=== PATIENT | male | born 1975 | race Caucasian/White ===

== ENCOUNTER 2019-09-24 08:18 | Emergency (ER) | payer SELFPAY ==
[~2019-09-24] VITALS: Ht 177.8 cm; Wt 61.2 kg
[2019-09-24 08:26] VITALS: BP 142/86
[2019-09-24] MEDS: TETRACAINE 0.5% OPHTH SOLUTION 4ML BOTTLE. OS ONE (08:34)
[2019-09-24] MEDS: FLUORESCEIN OPHTH TEST STRIP. OS ONE (08:34)
[2019-09-24] MEDS ORDERED: OFLO5DRO RIGHTEYE (08:50)
--- NOTE | 2019-09-24 08:50 | PHYS DOC ---
Past Medical History Past Medical History: No Pertinent History Past Surgical History: No Surgical History Alcohol Use: Occasionally Drug Use: None Adult General Chief Complaint Chief Complaint: EYE PROBLEMS HPI HPI Patient is a 44 year old male without history of medical problem who presents with eye pain and redness. Patient states he is more contact lenses yesterday after a while nausea and vomiting, headache. That he didn't wear lenses and since last night has left eye redness and foreign body sensation and blurred vision. Patient denies fever and chills nausea and vomiting, headache. Review of Systems Review of Systems Constitutional: Denies fever or chills [] Eyes: Denies change in visual acuity, redness, or eye pain [] HENT: Denies nasal congestion or sore throat [] Respiratory: Denies cough or shortness of breath [] Cardiovascular: No additional information not addressed in HPI [] GI: Denies abdominal pain, nausea, vomiting, bloody stools or diarrhea [] : Denies dysuria or hematuria [] Musculoskeletal: Denies back pain or joint pain [] Integument: Denies rash or skin lesions [] Neurologic: Denies headache, focal weakness or sensory changes [] Endocrine: Denies polyuria or polydipsia [] All other systems were reviewed and found to be within normal limits, except as documented in this note. Current Medications Current Medications Current Medications Medications (Trade) Dose Ordered Sig/Ivan Start Time Stop Time Status Last Admin Dose Admin Fluorescein Sodium (Ful-Samantha) 1 strip 1X ONCE 09/24/19 08:30 09/24/19 08:35 DC 09/24/19 08:34 1 STRIP Tetracaine HCl (Tetracaine) 1 drop 1X ONCE 09/24/19 08:30 09/24/19 08:35 DC 09/24/19 08:34 1 DROP Allergies Allergies Allergies Coded Allergies Type Severity Reaction Last Updated Verified No Known Drug Allergies 09/24/19 No Physical Exam Physical Exam Constitutional: Well developed, well nourished, no acute distress, non-toxic appearance. [] HENT: Normocephalic, atraumatic, bilateral external ears normal, oropharynx moist, no oral exudates, nose normal. [] Eyes: PERRLA, EOMI, conjunctiva normal, no discharge. [] Neck: Normal range of motion, no tenderness, supple, no stridor. [] Cardiovascular:Heart rate regular rhythm, no murmur [] Lungs & Thorax: Bilateral breath sounds clear to auscultation [] Abdomen: Bowel sounds normal, soft, no tenderness, no masses, no pulsatile masses. [] Skin: Warm, dry, no erythema, no rash. [] Back: No tenderness, no CVA tenderness. [] Extremities: No tenderness, no cyanosis, no clubbing, ROM intact, no edema. [] Neurologic: Alert and oriented X 3, normal motor function, normal sensory function, no focal deficits noted. [] Psychologic: Affect normal, judgement normal, mood normal. [] Current Patient Data Vital Signs Vital Signs Date Time Temp Pulse Resp B/P (MAP) Pulse Ox O2 Delivery O2 Flow Rate FiO2 09/24/19 08:26 98.3 74 16 142/86 (104) 100 Room Air 98.3 EKG EKG [] Radiology/Procedures Radiology/Procedures [] Course & Med Decision Making Course & Med Decision Making Pertinent Labs and Imaging studies reviewed. (See chart for details) [] Dragon Disclaimer Dragon Disclaimer This electronic medical record was generated, in whole or in part, using a voice recognition dictation system. Departure Departure Impression: Primary Impression: Left corneal abrasion Disposition: HOME, SELF-CARE (at 0 [phone]) Condition: IMPROVED Patient Instructions: Eye - Corneal Abrasion Additional Instructions: Do not wear contact lens Follow-up with ophthalmology physician in 2-3 days Return to ER if not getting better Thank you for visiting [facility]. We appreciate you trusting us with your care. If any additional problems come up don't hesitate to return to visit us. Please follow up with your primary care provider so they can plan additional care if needed and know about the problem that you had. If symptoms worsen come back to the Emergency Department. Any concerning symptoms that start such as chest pain, shortness of air, weakness or numbness on one side of the body, running high fevers or any other concerning symptoms return to the ER. Scripts Ofloxacin (OCUFLOX) 5 Ml Drops 2 DROP RIGHTEYE Q6HRS for 7 Days, #1 BOTTLE Prov: TARIQ HERNANDEZ MD 09/24/19 Problem Qualifiers Primary Impression: Left corneal abrasion Encounter type: initial encounter Qualified Codes: S05.02XA - Injury of conjunctiva and corneal abrasion without foreign body, left eye, initial encounter TARIQ HERNANDEZ MD Sep 24, 2019 08:50
== END 2019-09-24 09:12 | disposition home or self-care (01) ==
LOC: ER 08:18
DX: S05.02XA Injury of conjunctiva and corneal abrasion without foreign body, left eye, initial encounter (principal); R11.2 Nausea with vomiting, unspecified; H53.8 Other visual disturbances; Y29.XXXA Contact with blunt object, undetermined intent, initial encounter; Y93.89 Activity, other specified; Y92.89 Other specified places as the place of occurrence of the external cause; Y99.8 Other external cause status
CPT/HCPCS: 99283

== ENCOUNTER 2020-09-24 00:13 | Emergency (ER) | payer SELFPAY ==
[~2020-09-24] VITALS: Ht 177.8 cm; Wt 70.9 kg
[~2020-09-24 00:13] MED LIST: OFLO5DRO RIGHTEYE
[2020-09-24 00:25] VITALS: BP 128/85
--- NOTE | 2020-09-24 01:14 | ED.ADGEN ---
Past Medical History Past Medical History: No Pertinent History Past Surgical History: Other Additional Past Surgical Histo: hemorrhoid repair Smoking Status: Current Every Day Smoker Additional Information: 1 PPD Alcohol Use: Occasionally Drug Use: None General Adult EDM: Chief Complaint: LACERATION/AVULSION HPI: HPI: Patient is a 45 year old male presenting with bleeding from a wound on his penis. Patient states that he dropped a tool when he was working on his house and had a laceration on the ventral shaft of his penis. Says it was bleeding heavily and he used superglue to stop the bleeding. Patient states that earlier some of the glue peeled off and started bleeding again. Bleeding controlled prior to ED arrival. No other complaints, tetanus up-to-date. Says he otherwise has been well and denies any history of sleep disorders Review of Systems: Review of Systems: All other systems within normal limits except for as noted in the HPI Allergies: Allergies: Allergies Coded Allergies Type Severity Reaction Last Updated Verified No Known Drug Allergies 09/24/19 No Physical Exam: PE: Constitutional: Well developed, well nourished, no acute distress, non-toxic appearance. [] HENT: Normocephalic, atraumatic, bilateral external ears normal, nose normal. [] Eyes: PERRLA, conjunctiva normal, no discharge. [] Neck: No rigidity, supple, no stridor. [] Cardiovascular: Regular rate and rhythm, brisk cap refill [] Lungs & Thorax: Non labored symmetric respirations, no tachypnea or respiratory distress [] Abdomen: Soft, nondistended. Skin: Warm, dry, no erythema, no rash. Dried glue to the shaft of penis, no active bleeding. Wound edges not well approximated [] Back: No tenderness, no CVA tenderness. [] Extremities: No deformities, range of motion grossly intact, no lower extremity edema [] Neurologic: Alert and oriented X 3, no focal deficits noted. [] Psychologic: Affect normal, judgement normal, mood normal. [] Current Patient Data: Vital Signs: Vital Signs Date Time Temp Pulse Resp B/P (MAP) Pulse Ox O2 Delivery O2 Flow Rate FiO2 09/24/20 00:25 98.6 107 18 128/85 (99) 99 Room Air 98.6 EKG: EKG: [] Heart Score: Risk Factors: Risk Factors: DM, Current or recent (<one month) smoker, HTN, HLP, family history of CAD, obesity. Risk Scores: Score 0 - 3: 2.5% MACE over next 6 weeks - Discharge Home Score 4 - 6: 20.3% MACE over next 6 weeks - Admit for Clinical Observation Score 7 - 10: 72.7% MACE over next 6 weeks - Early Invasive Strategies Radiology/Procedures: Radiology/Procedures: [] Course & Med Decision Making: Course & Med Decision Making Discussed with patient that wound is outside timeframe for suture repair. Discussed that he will likely need urology follow-up for scar revision. Discussed wound care and return precautions Dragon Disclaimer: Dragon Disclaimer: This electronic medical record was generated, in whole or in part, using a voice recognition dictation system. Departure Departure Impression: Primary Impression: Laceration Disposition: 09 ADMITTED INPT THIS HOSP Condition: STABLE Referrals: KARENA CLOUD (PCP) Patient Instructions: Tissue Adhesive Wound Care Additional Instructions: Follow-up with [place] [facility] care, call for appointment at nearest location or any other urologist of your choosing AMY CORNEJO MD Sep 24, 2020 01:14
== END 2020-09-24 01:18 | disposition admitted as inpatient to this hospital (09) ==
LOC: ER 00:13
DX: S31.21XA Laceration without foreign body of penis, initial encounter (principal); F17.200 Nicotine dependence, unspecified, uncomplicated; Z98.890 Other specified postprocedural states; W20.8XXA Other cause of strike by thrown, projected or falling object, initial encounter; Y93.89 Activity, other specified; Y92.89 Other specified places as the place of occurrence of the external cause; Y99.8 Other external cause status
CPT/HCPCS: 99283

== ENCOUNTER 2021-10-17 17:41 | Emergency (ER) | payer SELFPAY ==
[~2021-10-17] VITALS: Ht 177.8 cm; Wt 72.4 kg
[2021-10-17 18:36] VITALS: BP 120/89
--- NOTE | 2021-10-17 18:41 | PHYS DOC ---
Past Medical History Past Medical History: No Pertinent History Past Surgical History: Other Additional Past Surgical Histo: hemorrhoid repair Smoking Status: Current Every Day Smoker Alcohol Use: Occasionally Drug Use: None General Adult EDM: Chief Complaint: LACERATION/AVULSION HPI: HPI: Patient is a 46 year old male without pertinent past medical history who presents with a laceration to his left thumb. Was working with a grinding wheel when it skipped on him and cut the back of his left thumb. States that is approximately an inch or slightly less. Bleeding stopped quickly. His friend helped him put butterfly bandage over the top of it and wrap it before coming to the emergency department. States that he still has full sensation and movement of his thumb. He is concerned that he originally saw his bone. Tetanus last updated approximately 4 years ago. Denies other injuries. Review of Systems: Review of Systems: Constitutional: Denies fever or chills. [] HENT: Denies nasal congestion or sore throat. [] Respiratory: Denies cough or shortness of breath. [] Musculoskeletal: Denies back pain or joint pain. [] Integument: Reports left thumb laceration Neurologic: Denies thumb weakness or sensory changes. [] Heart Score: C/O Chest Pain: No Allergies: Allergies: Allergies Coded Allergies Type Severity Reaction Last Updated Verified No Known Drug Allergies 10/17/21 No Physical Exam: PE: Constitutional: Well developed, well nourished, no acute distress, non-toxic appearance. [] HENT: Normocephalic, atraumatic Cardiovascular: Regular rate Lungs & Thorax: Normal work of breathing Skin: See laceration as described below Extremities: Dorsum of left thumb with a 1.5 cm laceration transversely oriented between the DIP and the PIP. Bleeding is hemostatic. Patient is able to fully flex the thumb, and can extend through the PIP, but cannot extend his DIP joint. Brisk cap refill. Sensation intact distally. No clear evidence of bony injury. There is a complete extensor tendon laceration evident on wound exploration. Neurologic: Alert and oriented X 3, normal motor function, normal sensory function, no focal deficits noted. [] Psychologic: Affect normal, judgement normal, mood normal. [] Current Patient Data: Vital Signs: Vital Signs Date Time Temp Pulse Resp B/P (MAP) Pulse Ox O2 Delivery O2 Flow Rate FiO2 10/17/21 18:08 97.2 81 10 126/89 (101) 98 Room Air 97.2 EKG: EKG: [] Radiology/Procedures: Radiology/Procedures: Indication: Left thumb laceration Procedure: The patient was placed in the appropriate position and anesthesia was injected locally with 1% lidocaine. The area was then copiously pressure irrigated with saline. The wound was explored and showed a complete extensor tendon injury. The laceration was closed with three 4-0 silk sutures in a simple interrupted fashion. Total repaired wound length: 1.5 cm. Other Items: None The patient tolerated the procedure well. Complications: None.[] Course & Med Decision Making: Course & Med Decision Making Pertinent Labs and Imaging studies reviewed. (See chart for details) Patient 46-year-old male without pertinent past medical history presents with a laceration to the posterior of his left thumb. There is a complete extensor tendon injury visualized on inspection and the p atient has an inability to extend his DIP. X-ray negative. Repaired as above. Called [facility] to arrange for hand surgery follow up, expressed the importance of surgery follow up to regain full function of the thumb. Will be given keflex and be splinted in extension. Dragon Disclaimer: Dragon Disclaimer: This electronic medical record was generated, in whole or in part, using a voice recognition dictation system. Departure Departure Impression: Primary Impression: Laceration of thumb Additional Impression: Injury of extensor tendon of hand Disposition: 01 HOME / SELF CARE / HOMELESS Condition: STABLE Referrals: KARENA CLOUD (PCP) Additional Instructions: You injured the tendons in your hand that allow you to extend your thumb. This requires a hand surgeon. You will need to wear a splint until you can follow up with the surgeon. We repaired your laceration with 4 sutures. These will need to come out when a hand surgeon sees you. We will start you on an antibiotic called keflex. Please take the whole precription. For hand surgery follow up there are two options I found available: 1. [facility] hand and upper extremity surgery Call [phone] to schedule an appointment. or 2. Dr. Gil from [facility]'s hand surgery staff [phone] or If you have difficulty you can also call your PCP office and see if they have anyone else they can potentially refer you to but this should be dealt with in the next 3 days. If you have increasing swelling, pain, redness, or warmth these are all signs of potential infection. If these occur please see your doctor. For pain tylenol and ibuprofen are best used on a schedule. Please alternate between the two. -Tylenol 1000 mg every 6 hours (do not exceed 4000 mg in one day) -Ibuprofen 400 mg every 6 hours. Take with food. Do not take for more than 1 w qagan tayagungin. Scripts Cephalexin (KEFLEX) 500 Mg Capsule 1 CAP PO QID for 7 Days, #28 CAP 0 Refills Prov: HUE BLEVINS MD 10/17/21 HUE BLEVINS MD Oct 17, 2021 18:41
[2021-10-17] MEDS ORDERED: LIDOCAINE 1% Multi-Dose 20 ML VIAL. INJ ONE (18:45)
--- NOTE | 2021-10-17 19:22 | RAD ---
XR FINGER(S)_LEFT 2+VIEWS_RT History: Reason: left thumb lac w/ level vial grinder. r/o bony injury. / Spl. Instructions: / History: Pain Technique: PA view the hand and 2 additional views of the first digit. Comparison: None. Findings: No dislocation. No acute fracture. Tiny densities projecting over the first proximal phalanx soft tis sues. Impression: 1. No acute osseous abnormality. 2. Tiny densities projecting over the first proximal phalanx soft tissues, may relate to foreign bod ies. Electronically signed by: Jordan Turk DO (10/17/2021 7:20 PM) [facility]
[2021-10-17] MEDS ORDERED: CEPH500C PO (20:35)
== END 2021-10-17 21:30 | disposition home or self-care (01) ==
LOC: ER 17:41
DX: S61.012A Laceration without foreign body of left thumb without damage to nail, initial encounter (principal); F17.200 Nicotine dependence, unspecified, uncomplicated; Y28.8XXA Contact with other sharp object, undetermined intent, initial encounter; Y93.89 Activity, other specified; Y92.89 Other specified places as the place of occurrence of the external cause; Y99.8 Other external cause status
CPT/HCPCS: 12001; 73140; 99283